=== PATIENT | male | born 1990 | race Caucasian/White ===

== ENCOUNTER 2020-08-14 14:43 | Emergency (ER) | payer OTHER ==
--- NOTE | 2020-08-14 16:38 | ED Physician Documentation ---
History of Present Illness - Stated complaint Stated Complaint: RT EAR PX/SWELLING - Chief complaint Chief Complaint: Heent - History obtained from History obtained from: Patient - History of Present Illness Timing: How many days ago (2) Pain level max: 5 Pain level now: 5 - Additonal information Additional information: Right ear pain starting a few days ago. 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 No drainage. Nothing makes it better or worse. No fevers. No chills. No sore throat. No nasal congestion. Review of Systems Constitutional: denies: Fever, Chills Respiratory: denies: Cough GI: denies: Vomiting, Diarrhea PD PAST MEDICAL HISTORY - Past Medical History Past Medical History: No - Past Surgical History Past Surgical History: No - Present Medications Home Medications: Ambulatory Orders Medication Instructions Recorded Confirmed Neomycin/Polymyx/Hc Otic Drops 4 drops OT TID 7 Days #1 bottle 08/14/20 [Cortisporin Ear Susp] - Allergies Allergies/Adverse Reactions: Allergies Allergy/AdvReac Type Severity Reaction Status Date / Time amoxicillin [From Augmentin] Allergy Unknown Verified 08/14/20 14:49 cefixime [From Suprax] Allergy Unknown Verified 08/14/20 14:49 clavulanic acid Allergy Unknown Verified 08/14/20 14:49 [From Augmentin] PD ED PE NORMAL - Vitals Vital signs reviewed: Yes - General General: Alert and oriented X 3, No acute distress - HEENT HEENT: Moist mucous membranes, Pharynx benign, Other (Left ear is normal. Right ear canal is swollen, white exudate. Unable to visualize the TM.) - Neck Neck: Supple, no meningeal sign - Derm Derm: Warm and dry - Neuro Neuro: Alert and oriented X 3 - Psych Psych: Normal mood, Normal affect Results - Vitals Vitals: Vital Signs - 24 hr 08/14/20 08/14/20 14:47 16:47 Temperature 37.3 C 37 C Heart Rate 84 70 Respiratory 17 17 Rate Blood Pressure 151/78 H 139/75 H O2 Saturation 96 98 Oxygen O2 Source Room air PD MEDICAL DECISION MAKING - ED course Complexity details: considered differential, d/w patient ED course: Patient with a right acute otitis externa. Will place on Cortisporin otic. Patient counseled regarding signs and symptoms for which I believe and urgent re-evaluation would be necessary. Patient with good understanding of and agreement to plan and is comfortable going home at this time This document was made in part using voice recognition software. While efforts are made to proofread this document, sound alike and grammatical errors may occur. Departure - Departure Disposition: 01 Home, Self Care Clinical Impression: Right otitis externa Qualifiers: Otitis externa type: unspecified type Chronicity: acute Qualified Code(s): H60.501 - Unspecified acute noninfective otitis externa, right ear Condition: Good Instructions: ED Otitis Externa Follow-Up: your,doctor in 1 week [Other] Prescriptions: Neomycin/Polymyx/Hc Otic Drops [Cortisporin Ear Susp] 4 drops OT TID 7 Days #1 bottle Comments: Take all eardrops as prescribed. Return if you worsen. Follow-up with your doctor for further care. Discharge Date/Time: 08/14/20 16:50
[2020-08-14 16:49] VITALS: BP 139/75
== END 2020-08-14 16:50 | disposition home or self-care (01) ==
LOC: ED 14:43
DX: H60.501 Unspecified acute noninfective otitis externa, right ear (principal)
CPT/HCPCS: 99282; 99284